=== PATIENT | male | born 1950 | race Caucasian/White ===

== ENCOUNTER → 2017-08-31 | Outpatient (CLI) | payer MEDICARE ==
[2017-08-31 10:42] LABS: LYMPH # 1.8 K/mm3 (0.7-4.5); LYMPH % 30.5 % (10-50)
[2017-08-31 10:47] LABS: HEMOGLOBIN 13.9 g/dL (14.1-18.0)
[2017-08-31 12:31] LABS: BUN 14 mg/dL (7-18); FREE THYROXIN INDEX 7.1 ug/dl (5.93-13.13); GFR (ESTIMATED) 84 ML/MIN (>60)
== END ==
LOC: LAB 10:26
PROVIDERS: Internal Medicine Adolescent Medicine
DX: E78.5 Hyperlipidemia, unspecified (principal); R42 Dizziness and giddiness